=== PATIENT | male | born 1985 | race Caucasian/White ===

== ENCOUNTER 2021-06-27 10:20 | Emergency (ER) | payer BC ==
[~2021-06-27] VITALS: Ht 182.9 cm; Wt 136.4 kg
[2021-06-27 10:55] LABS: BASO # 0.01 K/mm3 (0.02-0.10); HEMOGLOBIN 15.8 g/dL (13.5-18.0); LYMPH# 1.03 K/mm3 (1.50-4.00); MEAN CELL VOLUME 84 fl (78-100); MEAN CORPUSCULAR HEMOGLOBIN 29 pg (27-31); MEAN CORPUSCULAR HGB CONC 35 g/dL (33-37); MEAN PLATELET VOLUME 11.7 fl (7.4-10.4); MONO # 0.39 K/mm3 (0.20-0.80); NEU # 3.09 K/mm3 (1.40-6.50); PLATELET COUNT 116 K/mm3 (130-400); RED BLOOD COUNT 5.37 M/mm3 (4.20-5.60); RED CELL DISTRIBUTION WIDTH 12.1 % (11.5-14.5); WHITE BLOOD COUNT 4.5 K/mm3 (4.8-10.8)
[2021-06-27 11:04] LABS: POTASSIUM 3.8 mmol/L (3.5-5.1); SODIUM 135 mmol/L (136-145)
[2021-06-27 11:06] LABS: CALCIUM 8.9 mg/dL (8.3-10.5)
[2021-06-27 11:08] LABS: CARBON DIOXIDE 21 mmol/L (22-29); GLUCOSE 114 mg/dL (75-110); TOTAL PROTEIN 7.2 g/dL (6.4-8.3)
[2021-06-27 11:09] LABS: TOTAL BILIRUBIN 1.4 mg/dL (0.2-1.2)
[2021-06-27 11:12] LABS: AST-SGOT 127 U/L (5-34)
[2021-06-27 11:15] LABS: ALT/SGPT 166 U/L (0-55)
[2021-06-27 11:23] LABS: TROPONIN-I < 0.03 ng/mL (<0.030)
[2021-06-27 12:26] LABS: PH-URINE 5.5 (5.0 - 8.0); URINE APPEARANCE CLEAR; URINE BILIRUBIN 1+ (NEGATIVE); URINE BLOOD NEGATIVE (NEGATIVE); URINE COLOR YELLOW; URINE GLUCOSE NEGATIVE (NEGATIVE); URINE KETONE 2+ (NEGATIVE); URINE NITRATE NEGATIVE (NEGATIVE); URINE PROTEIN(semi-quant) 1+ mg/dL (NEGATIVE); URINE UROBILINOGEN NORMAL (NORMAL)
[2021-06-27 12:27] LABS: URINE LEUKOCYTE ESTERASE TRACE (NEGATIVE); URINE MUCUS PRESENT (NOT PRESENT)
[2021-06-27 13:26] VITALS: BP 122/77
[2021-06-27] MEDS ORDERED: PROAIR DIGIHAL90 MCG IH (13:39)
[2021-06-27] MEDS ORDERED: PREDNISONE20 M1 PO (13:39)
[2021-06-27] MEDS ORDERED: MORGIDOX 2X100100 MG PO (13:39)
== END 2021-06-27 14:00 | disposition home or self-care (01) ==
LOC: ED 10:20
PROVIDERS: Physician Assistant
DX: U07.1 COVID-19 (principal); J12.82 Pneumonia due to coronavirus disease 2019; E86.0 Dehydration; R19.7 Diarrhea, unspecified; R07.2 Precordial pain
CPT/HCPCS: J1885; J2405; J7030